=== PATIENT | female | born 2000 | race Caucasian/White ===

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

== ENCOUNTER 2020-07-08 17:22 | Emergency (ER) | payer BC ==
[~2020-07-08] VITALS: Ht 157.5 cm; Wt 61.4 kg
[~2020-07-08 17:22] MED LIST: CARAFATE 1GM1 G PO; CEFTIN500 MG PO; PROTONIX 40MG T40 MG PO
[2020-07-08 17:36] VITALS: TEMP 98.5
[2020-07-08 18:20] LABS: BASO % 0.2 % (0.0-2.0); EOS % 0.1 % (0-4.0); GRAN # 11.3 (1.4-6.5); HEMATOCRIT 44.6 % (35.0-45.0); LYMPH # 1.5 (1.2-3.4); MEAN CELL VOLUME 92 fl (80.0-95.0); MEAN CORPUSCULAR HEMOGLOBIN 31 pg (26.0-32.0); MEAN CORPUSCULAR HGB CONC 34 g/dl (33.0-37.0); MEAN PLATELET VOLUME 9.2 fl (7.4-10.4); MONO # 0.6 (0.1-0.6); MONO % 4.4 % (1.7-9.3); PLATELET COUNT 402 K/mm3 (130-400); RED BLOOD COUNT 4.87 M/mm3 (4.10-5.30); REDCELL DISTRIBUTION WIDTH-CV 11.5 % (11.5-14.5)
[2020-07-08 19:23] LABS: ALBUMIN 4.2 gm/dL (3.5-5.0); BILIRUBIN,TOTAL 0.7 mg/dL (0.0-1.0); CALCIUM 8.7 mg/dL (8.4-10.2); CREATININE, serum 0.55 (0.52-1.25); TOTAL PROTEIN 7.5 gm/dL (6.4-8.2)
[2020-07-08 19:43] LABS: COLLECTION METHOD CLEAN CATCH
[2020-07-08 19:49] LABS: MUCOUS Present /lpf; PH 7 (5-8); SQUAMOUS EPITHELIAL 0-2 /hpf; URINE APPEARANCE Clear; URINE BACTERIA Rare /hpf; URINE BILIRUBIN Negative (NEGATIVE); URINE BLOOD Negative (NEGATIVE); URINE COLOR Yellow; URINE GLUCOSE Negative (NEGATIVE); URINE KETONE 1+ (NEGATIVE); URINE LEUKOCYTE ESTERASE Negative (NEGATIVE); URINE NITRATE Negative (NEGATIVE); URINE PROTEIN(semi-quant) Negative (NEGATIVE); URINE UROBILINOGEN Negative (NEGATIVE)
[2020-07-08 20:32] VITALS: BP 97/61; PULSE 110
== END 2020-07-08 20:34 | disposition home or self-care (01) ==
LOC: COL.ER 17:22
PROVIDERS: Family Medicine; Physician Assistant
DX: E27.40 Unspecified adrenocortical insufficiency (principal); Z32.02 Encounter for pregnancy test, result negative
CPT/HCPCS: C9113; J2405; J7030